=== PATIENT | male | born 1980 | race Caucasian/White ===

== ENCOUNTER 2017-08-14 17:18 | Emergency (ER) | payer SELFPAY ==
[~2017-08-14] VITALS: Ht 160 cm; Wt 90.0 kg
[~2017-08-14 17:18] MED LIST: NAPROSYN375 MG PO; ULTRAM50 M1 PO
[2017-08-14] MEDS ORDERED: POLYTRIM OU (18:04)
[2017-08-14 18:12] VITALS: BP 138/61
== END 2017-08-14 18:22 | disposition home or self-care (01) | DRG 125 ==
LOC: ED 17:18
DX: H10.9 Unspecified conjunctivitis (principal); F17.210 Nicotine dependence, cigarettes, uncomplicated; I51.9 Heart disease, unspecified

== ENCOUNTER 2019-01-15 09:19 | Emergency (ER) | payer SELFPAY ==
[~2019-01-15] VITALS: Ht 160 cm; Wt 70.0 kg
[~2019-01-15 09:19] MED LIST changes: +POLYTRIM OU
[2019-01-15 11:29] LABS: HEMATOCRIT 43.3 % (39.0-50.0); HEMOGLOBIN 15.2 g/dl (14.0-18.0); IMMATURE GRANULOCYTES 0.3 % (0.0-5.0); MEAN CELL VOLUME 88.7 fL CALC (80.0-100.0); MEAN CORPUSCULAR HGB 31.1 pG CALC (26.0-32.0); MEAN CORPUSCULAR HGB CONC 35.1 g/L CALC (32.0-36.0); NEUT# 6.32 thou/uL (1.82-7.42); RED BLOOD COUNT 4.88 mill/uL (4.70-6.10); RED CELL DISTRI WIDTH 12.1 % (11.5-15.5)
[2019-01-15 12:02] LABS: ACT PARTIAL THROMBO TIME 27.6 SECONDS (20.0-32.5)
[2019-01-15 12:16] LABS: ALBUMIN 4.6 g/dL (3.2-5.0); ALKALINE PHOSPHATASE 64 u/l (38-126); ANION GAP 13 (6-22 (CALC)); BILIRUBIN, TOTAL 0.5 mg/dL (0.0-1.4); BUN 20 mg/dL (9-20); BUN/CREATININE RATIO 23 (12-20 (CALC)); CARBON DIOXIDE 28 mmol/l (22-30); CHLORIDE 104 mmol/l (95-108); CREATININE 0.9 mg/dL (0.7-1.3); GFR > 60 ML/MIN (>=60 (CALC)); GFR FOR AFR.AMER. > 60 ML/MIN (>=60 (CALC)); POTASSIUM 4.4 mmol/l (3.5-5.1); SGOT/AST 29 u/l (17-59); SODIUM 140 mmol/l (137-146); TOTAL PROTEIN 7.3 g/dL (6.3-8.2)
[2019-01-15 12:46] LABS: TSH, 3RD GENERATION 1.15 uIU/mL (0.47 - 4.68)
[2019-01-15] MEDS ORDERED: DELTASONE20 MG PO (12:55)
[2019-01-15] MEDS ORDERED: VALTREX1 GM PO (12:55)
[2019-01-15 13:04] VITALS: BP 121/65
== END 2019-01-15 13:09 | disposition home or self-care (01) | DRG 74 ==
LOC: ED 09:19
PROVIDERS: Family Medicine
DX: G51.0 Bell's palsy (principal); F17.210 Nicotine dependence, cigarettes, uncomplicated